=== PATIENT | female | born 1990 | race Caucasian/White ===

== ENCOUNTER 2019-12-07 16:06 | Emergency (ER) | payer OTHER ==
[~2019-12-07] VITALS: Ht 162.5 cm; Wt 56.7 kg
[2019-12-07] MEDS ORDERED: IBU800 MG PO (17:44)
[2019-12-07] MEDS ORDERED: FLONASE ALLERG9.9 ML NAS (17:44)
[2019-12-07] MEDS ORDERED: CLARITIN10 MG PO (17:44)
== END 2019-12-07 17:46 | disposition home or self-care (01) ==
LOC: ED 16:06
DX: J02.8 Acute pharyngitis due to other specified organisms (principal)